=== PATIENT | female | born 1940 | race Asian ===

== ENCOUNTER 2023-09-01 20:58 | Inpatient (IN) | payer MEDICARE ==
[~2023-09-01] VITALS: Ht 160 cm; Wt 67.6 kg
[2023-09-01 20:59] VITALS: BP_SYST 119; PULSE 93; RESP 17; TEMP 96.9; O2SAT 98
[2023-09-01 21:29] LABS: EOSINOPHILS # (AUTO) 0.1 K/uL (0.0-0.4); EOSINOPHILS % (AUTO) 0.5 % (0.0-4.0); MONOCYTES # (AUTO) 0.6 K/uL (0.0-1.0); PLATELET COUNT (AUTO) 161 K/uL (130-430)
[2023-09-01 21:36] LABS: BASOPHILS % (AUTO) 0.3 % (0.0-2.0); LYMPHOCYTES # (AUTO) 1.1 K/uL (1.0-5.5); LYMPHOCYTES % (AUTO) 6.8 % (20.5-51.5); MEAN CORPUSCULAR HEMOGLOBIN 30 pg (27-31); MEAN CORPUSCULAR HGB CONC 34 % (32-36); MEAN CORPUSCULAR VOLUME 88 fL (79.0-98.0); MONOCYTES % (AUTO) 3.4 % (1.7-9.3); RED BLOOD CELL COUNT(AUTO) 2.11 MIL/uL (4.2-6.2); RED CELL DISTRIBUTION WIDTH 13.7 % (9.0-15.0); WHITE BLOOD COUNT (AUTO) 16.8 K/uL (4.8-10.8)
[2023-09-01] MEDS ORDERED: VITD2000 PO (21:39)
[2023-09-01] MEDS ORDERED: LIP20 PO (21:39)
[2023-09-01] MEDS ORDERED: GLIP5TAB26 PO (21:39)
[2023-09-01] MEDS ORDERED: COLC0.6T67 PO (21:39)
[2023-09-01] MEDS ORDERED: MOM PO (21:39)
[2023-09-01] MEDS ORDERED: SPIR25TA6 PO (21:39)
[2023-09-01] MEDS ORDERED: NOR10 PO (21:39)
[2023-09-01] MEDS ORDERED: LOSA-415 PO (21:39)
[2023-09-01] MEDS ORDERED: ANURH RC (21:39)
[2023-09-01] MEDS ORDERED: ALBU90AE INH (21:39)
[2023-09-01] MEDS ORDERED: ACET-2634 PO (21:39)
[2023-09-01] MEDS ORDERED: PRO40 PO (21:39)
[2023-09-01] MEDS ORDERED: HYDR25TA86 PO (21:39)
[2023-09-01 21:47] LABS: INR 1.1 (0.8-1.2); PROTHROMBIN TIME 10.9 SECS (9.5-12.5)
[2023-09-01 21:51] LABS: ANION GAP 11 (5-15); CALCIUM 8.2 mg/dL (8.4-11.0); CARBON DIOXIDE 20 mmol/L (23-29); CHLORIDE 109 mmol/L (98-107); CREATININE 2.13 mg/dL (0.55-1.30); GLUCOSE 258 mg/dL (74-106); POTASSIUM 4.9 mmol/L (3.5-5.1); SODIUM SERUM 140 mmol/L (136-145); UREA NITROGEN, BLOOD 49 mg/dL (8-21)
[2023-09-01 21:55] LABS: HEMATOCRIT 18.6 % (36-48); HEMOGLOBIN 6.3 g/dL (12.0-16.0)
[2023-09-01 22:08] LABS: ALBUMIN 2.1 g/dL (3.4-4.8); BILIRUBIN,DIRECT 0.1 mg/dL (0.0-0.3); TOTAL BILIRUBIN 0.2 mg/dL (0.0-1.0); TOTAL PROTEIN, SERUM 5.1 g/dL (6.4-8.3)
[2023-09-01] MEDS: PANTOPRAZOLE SODIUM 40 MG/VIAL (PROTONIX) IVP ONE (22:38)
[2023-09-01] MEDS ORDERED: MORPHINE 2 MG/ML INJ. SYRINGE IVP PRN (23:00)
[2023-09-01] MEDS ORDERED: DEXTROSE 50% JECT 50 ML DISP.SYRIN IVP PRN (23:00)
[2023-09-01] MEDS ORDERED: ACETAMINOPHEN 325 MG TABLET PO PRN (23:00)
[2023-09-01] MEDS ORDERED: ONDANSETRON HCL 4 MG/2 ML VIAL IVP PRN (23:00)
[2023-09-01] MEDS ORDERED: IPRATROPIUM BROM 0.5 MG/2.5 ML VIAL.NEB (ATROVENT) INH PRN (23:00)
[2023-09-01] MEDS ORDERED: PANTOPRAZOLE SODIUM 40 MG in NS 50 ML IV ONE (23:00)
[2023-09-01] MEDS ORDERED: ALBUTEROL SULFATE 0.083% 2.5 MG/3 ML VIAL.NEB INH PRN (23:00)
[2023-09-01] MEDS ORDERED: LORazepam 2 MG/ML VIAL IVP PRN (23:00)
[2023-09-01] MEDS ORDERED: INSULIN LISPRO SLIDING SCALE 100 UNITS/ML, 3 ML VIAL (humaLOG) SUBCUT PRN (23:00)
[2023-09-01] MEDS ORDERED: traZODone HCL 50 MG TABLET (DESYREL) PO PRN (23:15)
[2023-09-01] MEDS ORDERED: cefTRIAXone 1 GM VIAL ONE (23:31)
[2023-09-01] MEDS ORDERED: PANTOPRAZOLE SODIUM 40 MG/VIAL (PROTONIX) ONE (23:34)
[2023-09-01] MEDS: PANTOPRAZOLE SODIUM 40 MG in NS 50 ML IV SCH (23:35)
[2023-09-01] MEDS: cefTRIAXone 1 GM in D5W 50 ML IV ONE (23:35)
[2023-09-01] MEDS: NACL 0.9% 1,000 ML IV SCH (23:36)
[2023-09-02 01:32] VITALS: BP_SYST 114; PULSE 81; O2SAT 96
[2023-09-02] MEDS ORDERED: PANTOPRAZOLE SODIUM 40 MG/VIAL (PROTONIX) ONE (04:27)
[2023-09-02 05:40] LABS: BILIRUBIN,URINE NEGATIVE (NEGATIVE); CLARITY/URINE CLEAR (CLEAR); COLOR,URINE YELLOW (YELLOW); GLUCOSE,URINE NEGATIVE (NEGATIVE); KETONES,URINE NEGATIVE (NEGATIVE); LEUKOCYTE ESTERASE ,URINE NEGATIVE (NEGATIVE); NITRITE, URINE NEGATIVE (NEGATIVE); PROTEIN URINE NEGATIVE (NEGATIVE); UROBILINOGEN,URINE 0.2 (0.2-1.0)
[2023-09-02 06:13] LABS: BLOOD, URINE TRACE (NEGATIVE)
[2023-09-02 06:14] LABS: BACTERIA,URINE None Seen /HPF (None Seen); WBC,URINE 0-3 /HPF (0-3)
[2023-09-02 07:28] LABS: BASOPHILS # (AUTO) 0.1 K/uL (0.0-0.2); BASOPHILS % (AUTO) 0.5 % (0.0-2.0); EOSINOPHILS % (AUTO) 0.3 % (0.0-4.0); LYMPHOCYTES # (AUTO) 1.8 K/uL (1.0-5.5); LYMPHOCYTES % (AUTO) 11.8 % (20.5-51.5); MEAN CORPUSCULAR HEMOGLOBIN 30 pg (27-31); MEAN CORPUSCULAR HGB CONC 34 % (32-36); MEAN CORPUSCULAR VOLUME 88 fL (79.0-98.0); MONOCYTES # (AUTO) 0.9 K/uL (0.0-1.0); MONOCYTES % (AUTO) 6.1 % (1.7-9.3); NEUTROPHILS # (AUTO) 12.2 K/uL (1.8-7.7); NEUTROPHILS % (AUTO) 81.3 % (40.0-70.0); PLATELET COUNT (AUTO) 141 K/uL (130-430); RED BLOOD CELL COUNT(AUTO) 2.95 MIL/uL (4.2-6.2); RED CELL DISTRIBUTION WIDTH 13.8 % (9.0-15.0)
[2023-09-02 07:40] LABS: ANION GAP 9 (5-15); CALCIUM 8.1 mg/dL (8.4-11.0); CARBON DIOXIDE 20 mmol/L (23-29); CHLORIDE 110 mmol/L (98-107); CREATININE 1.52 mg/dL (0.55-1.30); GLUCOSE 113 mg/dL (74-106); PHOSPHORUS 3.3 mg/dL (2.7-4.5); POTASSIUM 4.7 mmol/L (3.5-5.1); SODIUM SERUM 139 mmol/L (136-145); UREA NITROGEN, BLOOD 49 mg/dL (8-21)
[2023-09-02] MEDS ORDERED: fentaNYL CITRATE/PF 100 MCG/2 ML AMP ONE ×2 (07:48→07:53)
[2023-09-02] MEDS ORDERED: MIDAZOLAM HCL 5 MG/5 ML VIAL ONE (07:49)
[2023-09-02 08:21] LABS: HEMOGLOBIN A1C 6.28 % (<5.7)
[2023-09-02] MEDS ORDERED: GABAPENTIN 100 MG CAPSULE PO ONE (09:00)
[2023-09-02] MEDS: GABAPENTIN 100 MG CAPSULE PO SCH (10:24)
[2023-09-02 10:44] LABS: INR 1.1 (0.8-1.2)
[2023-09-02 17:53] VITALS: BP_SYST 131; PULSE 73; RESP 16; TEMP 98.7; O2SAT 95
[2023-09-02 20:00] VITALS: BP_SYST 107; PULSE 80; RESP 18; TEMP 98; O2SAT 95
[2023-09-03] VITALS: BP_SYST 106; PULSE 79; RESP 18; TEMP 98; O2SAT 95
[2023-09-03 05:52] LABS: HEMATOCRIT 27.3 % (36-48); HEMOGLOBIN 9.2 g/dL (12.0-16.0); MEAN CORPUSCULAR HEMOGLOBIN 30 pg (27-31); MEAN CORPUSCULAR HGB CONC 34 % (32-36); MEAN CORPUSCULAR VOLUME 90 fL (79.0-98.0); PLATELET COUNT (AUTO) 169 K/uL (130-430); RED BLOOD CELL COUNT(AUTO) 3.04 MIL/uL (4.2-6.2); RED CELL DISTRIBUTION WIDTH 13.9 % (9.0-15.0); WHITE BLOOD COUNT (AUTO) 11.1 K/uL (4.8-10.8)
[2023-09-03 06:09] LABS: ANION GAP 10 (5-15); CALCIUM 8.6 mg/dL (8.4-11.0); CARBON DIOXIDE 21 mmol/L (23-29); CHLORIDE 113 mmol/L (98-107); GLUCOSE 150 mg/dL (74-106); POTASSIUM 4.6 mmol/L (3.5-5.1); SODIUM SERUM 144 mmol/L (136-145); UREA NITROGEN, BLOOD 22 mg/dL (8-21)
[2023-09-03 07:00] VITALS: O2SAT 97
[2023-09-03 07:05] LABS: BASOPHILS % (MANUAL) 0 % (0-2); EOSINOPHILS % (MANUAL) 4 % (0-7); LYMPHOCYTES % (MANUAL) 14 % (20-46); MONOCYTES % (MANUAL) 6 % (0-11); OVALOCYTES FEW; PLATELET ESTIMATE ADEQUATE (ADEQUATE); POLYCHROMASIA 1+
[2023-09-03 08:00] VITALS: BP_SYST 149; PULSE 82; RESP 18; TEMP 98.4; O2SAT 96
[2023-09-03] MEDS ORDERED: PRO40 PO (08:24)
[2023-09-03 12:10] VITALS: BP_SYST 136; PULSE 78; RESP 16; TEMP 97.9; O2SAT 95
[2023-09-03 14:19] VITALS: BP_SYST 135; PULSE 78; RESP 18; TEMP 97.8; O2SAT 96
[2023-09-05 14:41] LABS: ANION GAP 10 (5-15); CALCIUM 9.1 mg/dL (8.4-11.0); CARBON DIOXIDE 23 mmol/L (23-29); CHLORIDE 105 mmol/L (98-107); CREATININE 1.31 mg/dL (0.55-1.30); GLUCOSE 147 mg/dL (74-106); POTASSIUM 4.2 mmol/L (3.5-5.1); SODIUM SERUM 138 mmol/L (136-145); UREA NITROGEN, BLOOD 19 mg/dL (8-21)
[2023-09-05 15:03] LABS: PROTHROMBIN TIME 10.5 SECS (9.5-12.5)
== END 2023-09-03 15:30 | disposition home or self-care (01) | DRG 377 ==
LOC: SED 20:58 → SIC 22:50 → STU 09-02 04:48 → SMU 09-02 15:52 → STU 09-02 16:26
PROVIDERS: ADMIT Internal Medicine; ATTEND Internal Medicine
PROC: 30233N1 Transfusion of Nonautologous Red Blood Cells into Peripheral Vein, Percutaneous Approach (ICD-10-PCS; principal; 2023-09-01)
PROC: 0DB68ZX Excision of Stomach, Via Natural or Artificial Opening Endoscopic, Diagnostic (ICD-10-PCS; 2023-09-02)
PROC: 0DB98ZX Excision of Duodenum, Via Natural or Artificial Opening Endoscopic, Diagnostic (ICD-10-PCS; 2023-09-02)
DX: K25.4 Chronic or unspecified gastric ulcer with hemorrhage (principal); N17.0 Acute kidney failure with tubular necrosis; D62 Acute posthemorrhagic anemia; K26.4 Chronic or unspecified duodenal ulcer with hemorrhage; E11.9 Type 2 diabetes mellitus without complications; D72.829 Elevated white blood cell count, unspecified; E11.22 Type 2 diabetes mellitus with diabetic chronic kidney disease; I12.9 Hypertensive chronic kidney disease with stage 1 through stage 4 chronic kidney disease, or unspecified chronic kidney disease; N18.9 Chronic kidney disease, unspecified; Z79.899 Other long term (current) drug therapy; E78.5 Hyperlipidemia, unspecified; K57.30 Diverticulosis of large intestine without perforation or abscess without bleeding
CPT/HCPCS: 36415; 43239; 80048; 80076; 81000; 81001; 81015; 82948; 83037; 83735; 84100; 84484; 85007; 85025; 85027; 85610; 85730; 86886; 86900; 86901; 86920; 87081; 88305; 88312; 88313; 93005; 93306; 96365; 96375; 99291; 99292; C9113; G0378; J0696; J2250; J3010; J7060; P9021

== ENCOUNTER 2023-09-05 12:30 | Emergency (ER) | payer MEDICARE ==
[~2023-09-05] VITALS: Ht 157.5 cm; Wt 64.0 kg
[~2023-09-05 12:30] MED LIST: ACET-2634 PO; ALBU90AE INH; ANURH RC; COLC0.6T67 PO; GLIP5TAB26 PO; HYDR25TA86 PO; LIP20 PO; LOSA-415 PO; MOM PO; NOR10 PO; PRO40 PO; SPIR25TA6 PO; VITD2000 PO
[2023-09-05 12:51] VITALS: BP_SYST 141; PULSE 103; RESP 16; TEMP 98.9; O2SAT 96
[2023-09-05] MEDS ORDERED: PANTOPRAZOLE SODIUM 40 MG/VIAL (PROTONIX) ONE (13:25)
[2023-09-05] MEDS: PANTOPRAZOLE SODIUM 80 MG in NS 100 ML IVP ONE (13:50)
[2023-09-05] MEDS: ONDANSETRON HCL 4 MG/2 ML VIAL IVP ONE ×2 (13:51→14:25)
[2023-09-05 13:54] LABS: BASOPHILS # (AUTO) 0.1 K/uL (0.0-0.2); BASOPHILS % (AUTO) 0.4 % (0.0-2.0); EOSINOPHILS # (AUTO) 0.1 K/uL (0.0-0.4); EOSINOPHILS % (AUTO) 0.9 % (0.0-4.0); HEMATOCRIT 30.2 % (36-48); HEMOGLOBIN 10.3 g/dL (12.0-16.0); LYMPHOCYTES # (AUTO) 1.2 K/uL (1.0-5.5); LYMPHOCYTES % (AUTO) 7.5 % (20.5-51.5); MEAN CORPUSCULAR HEMOGLOBIN 30 pg (27-31); MEAN CORPUSCULAR HGB CONC 34 % (32-36); MEAN CORPUSCULAR VOLUME 89 fL (79.0-98.0); MONOCYTES # (AUTO) 1.4 K/uL (0.0-1.0); MONOCYTES % (AUTO) 8.5 % (1.7-9.3); NEUTROPHILS # (AUTO) 13.4 K/uL (1.8-7.7); NEUTROPHILS % (AUTO) 82.7 % (40.0-70.0); PLATELET COUNT (AUTO) 264 K/uL (130-430); WHITE BLOOD COUNT (AUTO) 16.2 K/uL (4.8-10.8)
[2023-09-05] MEDS: MORPHINE 4 MG INJ. 4 MG/ML VIAL IVP ONE ×2 (14:25→18:24)
[2023-09-05] MEDS: OCTREOTIDE ACETATE 50 MCG/ML AMP IVP ONE (14:38)
[2023-09-05 16:59] LABS: ANION GAP 9 (5-15); CARBON DIOXIDE 23 mmol/L (23-29); CHLORIDE 105 mmol/L (98-107); GLUCOSE 145 mg/dL (74-106); POTASSIUM 4.2 mmol/L (3.5-5.1); SODIUM SERUM 137 mmol/L (136-145); UREA NITROGEN, BLOOD 19 mg/dL (8-21)
[2023-09-05 17:16] LABS: BASOPHILS # (AUTO) 0.1 K/uL (0.0-0.2); BASOPHILS % (AUTO) 0.5 % (0.0-2.0); EOSINOPHILS # (AUTO) 0.2 K/uL (0.0-0.4); HEMOGLOBIN 10.2 g/dL (12.0-16.0); LYMPHOCYTES % (AUTO) 6.7 % (20.5-51.5); MEAN CORPUSCULAR HEMOGLOBIN 31 pg (27-31); MEAN CORPUSCULAR HGB CONC 34 % (32-36); MEAN CORPUSCULAR VOLUME 90 fL (79.0-98.0); MONOCYTES # (AUTO) 1.4 K/uL (0.0-1.0); MONOCYTES % (AUTO) 8.8 % (1.7-9.3); PLATELET COUNT (AUTO) 255 K/uL (130-430); RED BLOOD CELL COUNT(AUTO) 3.35 MIL/uL (4.2-6.2); RED CELL DISTRIBUTION WIDTH 14.1 % (9.0-15.0); WHITE BLOOD COUNT (AUTO) 15.6 K/uL (4.8-10.8)
[2023-09-05 17:24] LABS: PROTHROMBIN TIME 10.5 SECS (9.5-12.5)
[2023-09-05 18:23] LABS: ALBUMIN 2.9 g/dL (3.4-4.8); BILIRUBIN,DIRECT 0.1 mg/dL (0.0-0.3); TOTAL BILIRUBIN 0.5 mg/dL (0.0-1.0); TOTAL PROTEIN, SERUM 6.9 g/dL (6.4-8.3)
[2023-09-05] MEDS: ASPIRIN 81 MG TABLET(ECOTRIN) PO ONE (19:06)
[2023-09-05 20:31] VITALS: BP_SYST 125; PULSE 87; RESP 16; TEMP 98.2; O2SAT 95
== END 2023-09-05 20:31 | disposition short-term general hospital (02) ==
LOC: SED 12:30
DX: I21.4 Non-ST elevation (NSTEMI) myocardial infarction (principal); K92.2 Gastrointestinal hemorrhage, unspecified; E11.9 Type 2 diabetes mellitus without complications; I10 Essential (primary) hypertension; Z88.1 Allergy status to other antibiotic agents; Z88.2 Allergy status to sulfonamides; Z88.6 Allergy status to analgesic agent; Z88.8 Allergy status to other drugs, medicaments and biological substances; Z79.899 Other long term (current) drug therapy
CPT/HCPCS: 99291; 74176; 96365; 96375; 80076; 80048; 83880; 85025; 85610; 85730; 84484; 36415; 93005; 71045; 96376; 82948; J2354; J2405; C9113; J2270